=== PATIENT | female | born 1990 | race Caucasian/White ===

== ENCOUNTER 2021-05-21 16:41 | Outpatient (REF) | payer MEDICAID, SELFPAY ==
--- NOTE | ~2021-05-21 | MR_ITS ---
EXAMINATION: MR BRAIN WITHOUT AND WITH CONTRAST CLINICAL INFORMATION: Migraine without aura. COMPARISON: None available. TECHNIQUE: Multiplanar, multisequence imaging of the brain was performed before and after the intravenous administration of 6 mL of Gadavist. FINDINGS: There is no acute infarction, mass, hemorrhage, or extra-axial collection. No abnormal or unexpected intracranial enhancement is seen. The ventricles, sulci, and basilar cisterns are normal in size and configuration. The midline structures appear normal. The cerebellar tonsils are normally positioned. The flow voids of the major intracranial arteries appear intact. The bones and extracranial soft tissues are within normal limits. MR/MR head/brain wo/w con IMPRESSION: No mass lesion, acute infarction, or abnormal intracranial enhancement.
== END 2021-05-21 16:42 | disposition home or self-care (01) ==
LOC: HO.MRI 16:41
PROVIDERS: PCP Physician Assistant; Visit Provider Psychiatry & Neurology Neurology
DX: G43.009 Migraine without aura, not intractable, without status migrainosus (principal); R29.2 Abnormal reflex
CPT/HCPCS: 70553; A9585

== ENCOUNTER 2021-06-10 18:02 | Outpatient (REF) | payer MEDICAID, SELFPAY ==
--- NOTE | ~2021-06-10 | MR_ITS ---
EXAMINATION: MR CERVICAL SPINE WITHOUT AND WITH CONTRAST MR THORACIC SPINE WITHOUT AND WITH CONTRAST CLINICAL INFORMATION: Hyperreflexia and paresthesias. Dizziness and neck pain. COMPARISON: None TECHNIQUE: Multiplanar, multisequential imaging acquired without and with intravenous administration of 6 mL of Gadavist. FINDINGS: CERVICAL SPINE: There is a reversal of the normal cervical lordosis. No compression fractures are seen. Multilevel reduced intradiscal signal with mild endplate spurring and degenerative disc bulges noted. The paraspinal soft tissues appear normal. No pathologic enhancement visible. The vertebral artery flow-voids are maintained. The imaged lung apices are clear. The craniovertebral junction and visualized portions of the brain parenchyma are unremarkable. No cervical cord signal abnormality or syrinx is seen. C2-C3: Mild facet arthropathy. No central canal stenosis or disc pathology. Patent foramina. C3-C4: Very mild anterior subluxation and disc bulge without central canal stenosis or foraminal narrowing. Mild facet degeneration. C4-C5: Very small central disc protrusion and mild anterolisthesis without central canal stenosis or foraminal narrowing. Mild facet arthropathy. C5-C6: Shallow, broad based disc-osteophyte complex with a small right paracentral disc protrusion. No central canal stenosis. Endplate spurring with [id number] left foraminal encroachment. C6-C7: Broad-based posterior disc bulge and mild endplate spurring with slight impression upon the ventral thecal sac. Very mild narrowing of the central canal. Mild bilateral foraminal encroachment. C7-T1: No disc pathology, central canal stenosis, or foraminal narrowing. THORACIC SPINE: Mild rightward curvature of the midthoracic spine evident. The marrow signal is homogeneous. No compression fractures or subluxations are visible. There is a mild septated syrinx spanning from the T5 through the T8 levels in the midthoracic cord which measures up to 4.3 mm TV at the T7 level. The remaining imaged portions of the thoracic cord appear normal. The conus tip and cauda equina nerve roots appear normal. No pathologic intradural enhancement identified on postcontrast imaging. The paraspinal soft tissues are normal and imaged portions of the lungs are clear. T3-T4: Small central disc protrusion. T6-T7: Mild endplate spurring and shallow right subarticular zone disc protrusion. T8-T9: Mild disc bulge and shallow left paracentral to subarticular zone disc protrusion. T11-T12: Degenerative endplate spurring and mild disc bulge. The central canal and neural foramina are patent throughout the thoracic spine. The remaining thoracic discs are well hydrated and normal in appearance. MR/MR thoracic spine wo/w con IMPRESSION: Cervical spine: Mild multilevel cervical spondylosis and reversal of the normal lordotic curvature. No abnormal enhancement or cord signal abnormality. Small central disc protrusion and mild anterolisthesis at the C4-C5 level. Mild disc-osteophyte complex is at the C5-C6 and C6-C7 levels with [id number] left foraminal encroachment at C5-C6 and mild central canal stenosis and bilateral foraminal encroachment at the C6-C7 level. Thoracic spine: Mildly septated syrinx from the T5-T8 levels measuring up to 4.3 mm in transverse dimension at the T7 level. No abnormal enhancement. Mild rightward curvature of the thoracic spine with mild multilevel spondylitic changes. Shallow disc protrusions at the T3-T4, T6-T7, and T8-T9 levels. No central canal stenosis.
--- NOTE | ~2021-06-10 | MR_ITS ---
EXAMINATION: MR CERVICAL SPINE WITHOUT AND WITH CONTRAST MR THORACIC SPINE WITHOUT AND WITH CONTRAST CLINICAL INFORMATION: Hyperreflexia and paresthesias. Dizziness and neck pain. COMPARISON: None TECHNIQUE: Multiplanar, multisequential imaging acquired without and with intravenous administration of 6 mL of Gadavist. FINDINGS: CERVICAL SPINE: There is a reversal of the normal cervical lordosis. No compression fractures are seen. Multilevel reduced intradiscal signal with mild endplate spurring and degenerative disc bulges noted. The paraspinal soft tissues appear normal. No pathologic enhancement visible. The vertebral artery flow-voids are maintained. The imaged lung apices are clear. The craniovertebral junction and visualized portions of the brain parenchyma are unremarkable. No cervical cord signal abnormality or syrinx is seen. C2-C3: Mild facet arthropathy. No central canal stenosis or disc pathology. Patent foramina. C3-C4: Very mild anterior subluxation and disc bulge without central canal stenosis or foraminal narrowing. Mild facet degeneration. C4-C5: Very small central disc protrusion and mild anterolisthesis without central canal stenosis or foraminal narrowing. Mild facet arthropathy. C5-C6: Shallow, broad based disc-osteophyte complex with a small right paracentral disc protrusion. No central canal stenosis. Endplate spurring with [id number] left foraminal encroachment. C6-C7: Broad-based posterior disc bulge and mild endplate spurring with slight impression upon the ventral thecal sac. Very mild narrowing of the central canal. Mild bilateral foraminal encroachment. C7-T1: No disc pathology, central canal stenosis, or foraminal narrowing. THORACIC SPINE: Mild rightward curvature of the midthoracic spine evident. The marrow signal is homogeneous. No compression fractures or subluxations are visible. There is a mild septated syrinx spanning from the T5 through the T8 levels in the midthoracic cord which measures up to 4.3 mm TV at the T7 level. The remaining imaged portions of the thoracic cord appear normal. The conus tip and cauda equina nerve roots appear normal. No pathologic intradural enhancement identified on postcontrast imaging. The paraspinal soft tissues are normal and imaged portions of the lungs are clear. T3-T4: Small central disc protrusion. T6-T7: Mild endplate spurring and shallow right subarticular zone disc protrusion. T8-T9: Mild disc bulge and shallow left paracentral to subarticular zone disc protrusion. T11-T12: Degenerative endplate spurring and mild disc bulge. The central canal and neural foramina are patent throughout the thoracic spine. The remaining thoracic discs are well hydrated and normal in appearance. MR/MR cervical spine wo/w con IMPRESSION: Cervical spine: Mild multilevel cervical spondylosis and reversal of the normal lordotic curvature. No abnormal enhancement or cord signal abnormality. Small central disc protrusion and mild anterolisthesis at the C4-C5 level. Mild disc-osteophyte complex is at the C5-C6 and C6-C7 levels with [id number] left foraminal encroachment at C5-C6 and mild central canal stenosis and bilateral foraminal encroachment at the C6-C7 level. Thoracic spine: Mildly septated syrinx from the T5-T8 levels measuring up to 4.3 mm in transverse dimension at the T7 level. No abnormal enhancement. Mild rightward curvature of the thoracic spine with mild multilevel spondylitic changes. Shallow disc protrusions at the T3-T4, T6-T7, and T8-T9 levels. No central canal stenosis.
== END 2021-06-10 18:03 | disposition home or self-care (01) ==
LOC: HO.MRI 18:02
PROVIDERS: Visit Provider Psychiatry & Neurology Neurology
DX: R29.2 Abnormal reflex (principal); G82.20 Paraplegia, unspecified
CPT/HCPCS: 72156; 72157; A9585

== ENCOUNTER 2023-08-21 13:01 | Outpatient (AMB) | payer MEDICAID, SELFPAY ==
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
== END 2023-08-21 15:20 | disposition home or self-care (01) ==
PROVIDERS: PCP Physician Assistant; Visit Provider Physician Assistant
DX: M54.2 Cervicalgia (principal)
CPT/HCPCS: 99205

== ENCOUNTER 2023-08-21 13:01 | Outpatient (REF) | payer MEDICAID, SELFPAY ==
--- NOTE | ~2023-08-21 | XR_ITS ---
EXAMINATION: XR CERVICAL SPINE CLINICAL INFORMATION: M54.2 - Cervicalgia COMPARISON: MR cervical spine of 06/10/2021. TECHNIQUE: 4 views of the cervical spine, inclusive of flexion and extension views, were obtained. FINDINGS: Reversal of the normal cervical lordosis. Multilevel cervical spondylosis. Mild loss of disc space height with hypertrophic changes C5-C6. Minimal anterior subluxation of C2 on C3, C3 on C4, and C4 on C5, and C5 on C6 with flexion. Minimal posterior subluxation of C2 on C3, C3 on C4, and C4 on C5 with extension. Facet arthritis in the lower cervical spine. XR/XR cervical spine 4V IMPRESSION: Mild multilevel cervical spondylosis. Electronically signed by: Yamilka Liao MD 08/01/2024 06:50 AM CYRUS ADAM
== END 2023-08-21 13:02 | disposition home or self-care (01) ==
LOC: HO.HOSX 13:01
PROVIDERS: PCP Physician Assistant; Visit Provider Physician Assistant
DX: M54.2 Cervicalgia (principal)
CPT/HCPCS: 72050; 99202

== ENCOUNTER 2025-03-20 14:03 | Outpatient (AMB) | payer MEDICAID, SELFPAY ==
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
[2025-03-20 14:09] VITALS: BP 122/67; PULSE 92; RESP 16; O2SAT 100; BMI 25.0
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
== END 2025-03-20 14:50 | disposition home or self-care (01) ==
LOC: HO.PMC 14:03
PROVIDERS: PCP Family Medicine; Visit Provider Nurse Practitioner Family
DX: Q79.60 Ehlers-Danlos syndrome, unspecified (principal); M47.812 Spondylosis without myelopathy or radiculopathy, cervical region; G44.86 Cervicogenic headache; M62.838 Other muscle spasm; M54.9 Dorsalgia, unspecified; M43.8X2 Other specified deforming dorsopathies, cervical region
CPT/HCPCS: 99204

== ENCOUNTER 2025-03-20 14:03 | Outpatient (REF) | payer MEDICAID, SELFPAY ==
--- NOTE | ~2025-03-20 | XR_ITS ---
EXAMINATION: XR CERVICAL SPINE CLINICAL INFORMATION: M47.812 - Spondylosis without myelopathy or radiculopathy, cervical region COMPARISON: August 21, 2023 TECHNIQUE: AP oblique lateral views and atlantoodontoid views. FINDINGS: Craniocervical junction is intact. S-shaped curvature of the cervical spine with a reverse curvature apex at C4-5. Marginal osteophyte formation at C5-6 and to a lesser extent C6-7. Decreased intervertebral disc height C5-6. No gross neuroforamina stenosis. No lytic or blastic lesions. Upper airway is patent. XR/XR cervical spine 4V IMPRESSION: Multilevel cervical spondylosis with a [place] deformity apex at C5-6. Electronically signed by: Nas Flowers MD 03/20/2025 03:26 PM EDT
--- NOTE | ~2025-03-20 | XR_ITS ---
EXAMINATION: XR THORACIC SPINE CLINICAL INFORMATION: M54.9 - Dorsalgia, unspecified COMPARISON: Correlated to MRI dated June 10, 2021. TECHNIQUE: AP, lateral and swimmer's views FINDINGS: No acute cortical disruption or malalignment. No lytic or blastic lesions. Multilevel small marginal osteophyte formation and endplate sclerosis involving mostly the lower thoracic and upper lumbar spine. S-shaped curvature of the thoracolumbar spine. XR/XR thoracic spine 3V IMPRESSION: Multilevel cervical thoracolumbar spondylosis. Electronically signed by: Nas Flowers MD 03/20/2025 03:28 PM EDT
== END 2025-03-20 14:04 | disposition home or self-care (01) ==
LOC: HO.XRAY 14:03
PROVIDERS: PCP Family Medicine; Visit Provider Nurse Practitioner Family
DX: M47.812 Spondylosis without myelopathy or radiculopathy, cervical region (principal); Q79.60 Ehlers-Danlos syndrome, unspecified; G44.86 Cervicogenic headache; M62.830 Muscle spasm of back; M54.6 Pain in thoracic spine; M54.2 Cervicalgia; R42 Dizziness and giddiness; M43.8X2 Other specified deforming dorsopathies, cervical region; R26.89 Other abnormalities of gait and mobility; Z79.1 Long term (current) use of non-steroidal anti-inflammatories (NSAID); Z79.899 Other long term (current) drug therapy
CPT/HCPCS: 72050; 72072; 99202

== ENCOUNTER → 2025-03-20 15:01 | Outpatient (BNV) | payer MEDICAID, SELFPAY | PROVIDERS: PCP Family Medicine; Visit Provider Radiology Diagnostic Radiology | DX: M47.892 Other spondylosis, cervical region (principal); M47.894 Other spondylosis, thoracic region | CPT/HCPCS: 72050; 72072 ==

== ENCOUNTER 2025-03-31 18:54 | Outpatient (REF) | payer MEDICAID, SELFPAY ==
--- NOTE | ~2025-03-31 | MR_ITS ---
CLINICAL HISTORY: M47.812 - Spondylosis without myelopathy or radiculopathy, cervical region MR cervical spine without gadolinium Comparison: CR/SR - XR THORACIC SPINE 3 VIEWS - 03/20/25 15:21 EDT CR/SR - XR CERVICAL SPINE 4-5 VIEWS - 03/20/25 15:13 EDT Findings: Multilevel cervical spondylolisthesis with disc space narrowing from C2-3 to C6-7, most pronounced at C4-5, C5-6, and C6-7. No evidence of compression fractures or abnormal marrow signal. There is multilevel canal stenosis and bilateral foraminal stenosis, most severe at C4-5 and C5-6. No spinal cord edema. Visualized intracranial contents are unremarkable. No cervical fluid collections or masses. Visualized lung apices are unremarkable. IMPRESSION: Multilevel cervical spondylolisthesis with disc space narrowing and multilevel canal stenosis and bilateral foraminal stenosis, most severe at C4-5 and C5-6. This document has been electronically signed by: Bucky Hwang MD on 03/31/2025 21:06:40
== END 2025-03-31 18:55 | disposition home or self-care (01) ==
LOC: HO.MRI 18:54
PROVIDERS: PCP Family Medicine; Visit Provider Nurse Practitioner Family
DX: M47.812 Spondylosis without myelopathy or radiculopathy, cervical region (principal); G44.86 Cervicogenic headache; M43.8X2 Other specified deforming dorsopathies, cervical region; Q79.60 Ehlers-Danlos syndrome, unspecified
CPT/HCPCS: 72141

== ENCOUNTER → 2025-03-31 18:54 | Outpatient (BNV) | payer MEDICAID, SELFPAY | PROVIDERS: PCP Family Medicine; Visit Provider Student in an Organized Health Care Education/Training Program | DX: M43.12 Spondylolisthesis, cervical region (principal) | CPT/HCPCS: 72141 ==

== ENCOUNTER 2025-05-01 09:46 | Outpatient (AMB) | payer MEDICAID, SELFPAY ==
--- NOTE | 2025-05-01 09:50 | HO.SPINEOV ---
Vital Signs 05/01/25 09:54 Height 5 ft 5 in Weight 150 lb BMI 25.0 Intake Visit Reasons: Spinal stenosis Intake Note: Ms. Tovar is here today c/o neck pain that ratiates to the arms all the way down to the legs. 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 Please refer to last years note for her original reason for referral. She comes in today to follow-up. She continues to have severe posterior neck pain with intermittent tingling down her arms and headaches associated with all this. Last time she was here we talked about the fact that she had a kyphotic deformity of her neck and this could cause neck pain, however treating it with surgical correction could also give her pain if we needed to do a multilevel fusion, and at the time I think she just was not in bad enough pain to justify it. She tells me that the last year and a half has continued to be terrible in terms of posterior neck pain and only getting worse. Although she has good days and bad days, there are more bad days than good. She continues to take Suboxone, meloxicam, gabapentin and cyclobenzaprine. She is due to undergo some shots up and the pain management office and the patient tells me that she was sent down here specifically to be evaluated anatomically to see if she would be a candidate for some kind of interventional pain procedure. From the records it sounds like maybe they are talking about doing a Sprint or spinal cord stimulator type procedure but there also talks of C3, C4 and C5 median branch blocks. On exam, she is able to stand walk on her own down the hallway, tandem gait walking is with excellent stability, strength and reflexes all normal, extraocular movements and cranial nerve testing is all normal. Again her MRI done here at [facility] shows kyphotic curvature of the cervical spine with some degenerative disc disease at C5-6, there are varying degrees of foraminal stenosis as well. Her x-rays show that she has full if not accentuated range of motion with flexion and extension x-rays. I will review her imaging with Dr. Mahan again see if we can come up with some kind of tentative surgical plan if these other interventional procedures do not work. In the meantime, I will try to get in touch with Nathalie to see exactly what the patient was talking about regarding needing to be evaluated anatomically for 1 of their procedures. Total amount of time spent in this visit was 20 minutes in discussion of symptoms, cervical imaging results and subsequent plan of care Deshawn Mahan MD,PhD [facility] Coding Level of Care Code Est Pt Level 3 (32099) Diagnoses Neck pain M54.2 EDS (Jalil-Danlos syndrome) Q79.60
[2025-05-01 09:54] VITALS: BMI 25.0
== END 2025-05-01 10:36 | disposition home or self-care (01) ==
LOC: HO.HNS 09:46
PROVIDERS: PCP Family Medicine; Referring Provider Nurse Practitioner Family; Visit Provider Physician Assistant
DX: M54.2 Cervicalgia (principal); Q79.60 Ehlers-Danlos syndrome, unspecified
CPT/HCPCS: 99213

== ENCOUNTER → 2025-05-01 09:46 | Outpatient (BNVA) | payer MEDICAID, SELFPAY | PROVIDERS: PCP Family Medicine; Referring Provider Nurse Practitioner Family; Visit Provider Physician Assistant | DX: M54.2 Cervicalgia (principal); Q79.60 Ehlers-Danlos syndrome, unspecified | CPT/HCPCS: 99212 ==

== ENCOUNTER 2025-06-02 08:32 | Outpatient (AMB) | payer OTHER, SELFPAY ==
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
[2025-06-02 08:39] VITALS: BP 117/76; PULSE 90; O2SAT 100
== END 2025-06-02 08:52 | disposition home or self-care (01) ==
LOC: HO.PMC 08:33
PROVIDERS: PCP Family Medicine; Visit Provider Nurse Practitioner Family
DX: Q79.60 Ehlers-Danlos syndrome, unspecified (principal); M47.812 Spondylosis without myelopathy or radiculopathy, cervical region; G44.86 Cervicogenic headache; M62.838 Other muscle spasm; M54.9 Dorsalgia, unspecified; M43.8X2 Other specified deforming dorsopathies, cervical region; M48.02 Spinal stenosis, cervical region; M43.12 Spondylolisthesis, cervical region
CPT/HCPCS: 99213

== ENCOUNTER → 2025-06-02 08:32 | Outpatient (BNVA) | payer OTHER, SELFPAY | PROVIDERS: PCP Family Medicine; Visit Provider Nurse Practitioner Family | DX: Q79.60 Ehlers-Danlos syndrome, unspecified (principal); M47.812 Spondylosis without myelopathy or radiculopathy, cervical region; G44.86 Cervicogenic headache; M62.838 Other muscle spasm; M43.8X2 Other specified deforming dorsopathies, cervical region; M48.02 Spinal stenosis, cervical region; M43.12 Spondylolisthesis, cervical region; M54.9 Dorsalgia, unspecified | CPT/HCPCS: 99212 ==

== ENCOUNTER 2025-06-29 06:20 | Outpatient (REF) | payer OTHER, SELFPAY ==
--- NOTE | ~2025-06-29 | FL_ITS ---
EXAMINATION: FL GUIDANCE ONLY HISTORY: M47.812 - Spondylosis without myelopathy or radiculopathy, cervical region COMPARISON: None available. TECHNIQUE: Fluoroscopy time: 15 seconds. Cumulative Dose: 1.50 mGy. DAP: 206.00 mGycm2 Images: 3. FINDINGS: Fluoroscopic spot films of the cervical spine demonstrate needles and contrast material in place on the left. FL/FL guidance in treatment room IMPRESSION: Fluoroscopy during procedure. Please see procedure report for additional information. Electronically signed by: Juan Daniel Cristina MD 06/29/2025 03:04 PM [facility]
== END 2025-06-29 06:21 | disposition home or self-care (01) ==
LOC: CF 06:20
PROVIDERS: Visit Provider Internal Medicine
DX: M47.812 Spondylosis without myelopathy or radiculopathy, cervical region (principal)
CPT/HCPCS: 64490; 64491; J2795; Q9967

== ENCOUNTER 2025-06-29 11:25 | Outpatient (AMB) | payer OTHER, SELFPAY ==
[2025-06-29 11:33] VITALS: BP 98/68; PULSE 101; RESP 16; O2SAT 100
--- NOTE | 2025-06-29 11:33 | MHC.OFFVIS ---
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: No Allergies codeine (CODEINE) Allergy (Severe, Verified 06/29/25 11:33) ANAYPHYLAXIS Medication List - Last Reconciled 06/29/25 by Ruth Richard LPN acetazolamide 250 mg PO BID amitriptyline 10 mg PO BEDTIME buprenorphine-naloxone 2-0.5 mg (Suboxone) 1 film buccal DAILY chlorzoxazone 500 mg PO TID clobetasol 0.05% 1 appl topical BEDTIME clonazepam (Klonopin) 0.5 mg PO BID cyclobenzaprine 5 mg PO TID PRN eletriptan take 1 tab at onset of headache; if no relief, may repeat 1 tab after at least 2 hrs; max = 2 tabs/24 hrs PO escitalopram oxalate 20 mg PO DAILY gabapentin 100 mg PO TID lidocaine 5% 1 patch topical DAILY meloxicam 15 mg PO DAILY norethindrone ac-eth estradiol 1-20 mg-mcg 1 tab PO DAILY onabotulinumtoxinA (Botox) IM ondansetron 4 mg PO Q8H propranolol 10 mg PO BID HPI HPI Right diagnostic C3-C4-C5 MBB: Details: Patient presents for scheduled procedure. Denies any recent cough, cold, infection, fever or other significant changes in medical history since last office visit. [facility] Medical History Opioid dependence in remission Premenstrual tension syndrome Anxiety disorder Recurrent major depressive episodes, mild Panic disorder Neck muscle strain Muscle spasm Chronic pain syndrome PTSD (post-traumatic stress disorder) EDS (Jalil-Danlos syndrome) Physical Exam Vital Signs: Last Vital Signs Pulse 89 06/29/25 12:18 Resp 16 06/29/25 12:18 BP 90/60 06/29/25 12:18 Pulse Ox 99 06/29/25 12:18 Oxygen Delivery Method Room Air 06/29/25 12:18 Office Procedures Cervical/Thoracic Facet Inj Details: Diagnostic Cervical Medial Branch Block, Right C3, C4, C5 medial branches After obtaining written consent, pre-procedure blood pressure and pulse were recorded and are in the nursing record for review. The patient was placed in a lateral position. The respective cervical area was prepped with chloraprep and draped in sterile fashion. The skin over the target medial branch nerves was anesthetized with 0.5% lidocaine. A 25 gauge 1.5 inch needle was inserted into the target medial branch nerve under fluoroscopic guidance. No paresthesias were elicited with needle placement and aspiration was negative for blood and CSF. Next, 0.2cc of omnipaque 180 was injected to verify positioning. Next 0.5 ml 0.5% ropivicaine was injected (0.5 cc total per level). The identical procedure was performed at the remaining levels. The skin was cleansed and a sterile bandage was applied. Following the procedure the patient's vital signs were stable. The patient tolerated the procedure well and no complications were encountered. Following the procedure the patient's vital signs were stable. The patient was discharged home in good condition with post-procedural instructions. Time Out: Immediately prior to the procedure, the following was verbally confirmed that there is a signed consent form and that the correct patient, planned procedure, site and side are consistent with documentation and that necessary equipment and/or blood products are available prior to the start of the case. Complications: none EBL: <5 cc 46619 - with Fluoroscopy 21976 - second level, with Fluoroscopy Procedure code (CPT) selection complete Assessment & Plan Assessment & Plan (1) Cervical spondylosis: Code(s): M47.812 - Spondylosis without myelopathy or radiculopathy, cervical region Category: Medical Plan Patient is status post Right C3, C4, C5 diagnostic medial branch blocks. Patient tolerated procedure well and was discharged home in stable condition with discharge instructions. All questions were answered. We will follow-up via telephone or in clinic to assess response to therapy. A follow-up appointment was made during today's visit. Orders: Orders FL guidance in treatment room Today Karla Godfrey APRN, DERRICK [employer]AT CAPTAIN M47.812 - Spondylosis without myelopathy or radiculopathy, cervical region AMB Facet Injection-Cervical/Thoracic Today Zach Hillman MD M47.812 - Spondylosis without myelopathy or radiculopathy, cervical region Coding Level of Care Code Procedure Only Diagnoses Cervical spondylosis M47.812 CPT Codes Facet Injection Cervical/Thoracic - CPT: 07626 - with Fluoroscopy ([id number]) Facet Injection Cervical/Thoracic - CPT: 58922 - second level, with Fluoroscopy ([id number])
[2025-06-29 12:18] VITALS: BP 90/60; PULSE 89; RESP 16; O2SAT 99
== END 2025-06-29 12:38 | disposition home or self-care (01) ==
LOC: HO.PMCPRC 11:25
PROVIDERS: PCP Family Medicine; Visit Provider Internal Medicine
DX: M47.812 Spondylosis without myelopathy or radiculopathy, cervical region (principal)
CPT/HCPCS: 64490; 64491

== ENCOUNTER 2025-07-13 06:33 | Outpatient (REF) | payer OTHER, SELFPAY ==
--- NOTE | ~2025-07-13 | FL_ITS ---
EXAMINATION: XR FLUOROSCOPY WITH IMAGES CLINICAL INFORMATION: Spondylosis without myelopathy COMPARISON: 06/29/2025 TECHNIQUE: Fluoroscopy time: 13 seconds DAP: 327 mGycm2 Images: 2 FINDINGS: Fluoroscopy provided during procedure. Fluoroscopic spot images demonstrate needles and contrast material in place on the left. FL/FL guidance in treatment room IMPRESSION: Fluoroscopy during procedure. Please see procedure report for details. Electronically signed by: Aneesh Parra MD 07/14/2025 01:47 PM [facility]
== END 2025-07-13 06:34 | disposition home or self-care (01) ==
LOC: CF 06:33
PROVIDERS: Visit Provider Internal Medicine
DX: M47.812 Spondylosis without myelopathy or radiculopathy, cervical region (principal)
CPT/HCPCS: 64490; 64491; J2003; J2795; Q9967

== ENCOUNTER 2025-07-13 11:05 | Outpatient (AMB) | payer OTHER, SELFPAY ==
[2025-07-13 11:20] VITALS: BP 111/67; PULSE 104; RESP 16; O2SAT 98
--- NOTE | 2025-07-13 11:20 | MHC.OFFVIS ---
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 Required: No Allergies codeine (CODEINE) Allergy (Severe, Verified 07/17/25 11:08) ANAYPHYLAXIS Medication List - Last Reconciled 07/13/25 by Ruth Richard LPN acetazolamide 250 mg PO BID amitriptyline 10 mg PO BEDTIME buprenorphine-naloxone 2-0.5 mg (Suboxone) 1 film buccal DAILY chlorzoxazone 500 mg PO TID clobetasol 0.05% 1 appl topical BEDTIME clonazepam (Klonopin) 0.5 mg PO BID cyclobenzaprine 5 mg PO TID PRN eletriptan take 1 tab at onset of headache; if no relief, may repeat 1 tab after at least 2 hrs; max = 2 tabs/24 hrs PO escitalopram oxalate 20 mg PO DAILY gabapentin 100 mg PO TID lidocaine 5% 1 patch topical DAILY meloxicam 15 mg PO DAILY norethindrone ac-eth estradiol 1-20 mg-mcg 1 tab PO DAILY onabotulinumtoxinA (Botox) IM ondansetron 4 mg PO Q8H propranolol 10 mg PO BID HPI HPI Left diagnostic C3-C4-C5 MBB: Details: Patient presents for scheduled procedure. Denies any recent cough, cold, infection, fever or other significant changes in medical history since last office visit. [facility] Medical History Opioid dependence in remission Premenstrual tension syndrome Anxiety disorder Recurrent major depressive episodes, mild Panic disorder Neck muscle strain Muscle spasm Chronic pain syndrome PTSD (post-traumatic stress disorder) EDS (Jalil-Danlos syndrome) Physical Exam Vital Signs: Last Vital Signs Pulse 107 H 07/13/25 11:56 Resp 16 07/13/25 11:56 BP 96/68 07/13/25 11:56 Pulse Ox 98 07/13/25 11:56 Oxygen Delivery Method Room Air 07/13/25 11:56 Office Procedures Procedure Details: Diagnostic Cervical Medial Branch Block, Left C3, C4, C5 medial branches After obtaining written consent, pre-procedure blood pressure and pulse were recorded and are in the nursing record for review. The patient was placed in a lateral position. The respective cervical area was prepped with chloraprep and draped in sterile fashion. The skin over the target medial branch nerves was anesthetized with 0.5% lidocaine. A 25 gauge 1.5 inch needle was inserted into the target medial branch nerve under fluoroscopic guidance. No paresthesias were elicited with needle placement and aspiration was negative for blood and CSF. Next, 0.2cc of omnipaque 180 was injected to verify positioning. Next 0.5 ml 0.5% ropivicaine was injected (0.5 cc total per level). The identical procedure was performed at the remaining levels. The skin was cleansed and a sterile bandage was applied. Following the procedure the patient's vital signs were stable. The patient tolerated the procedure well and no complications were encountered. Following the procedure the patient's vital signs were stable. The patient was discharged home in good condition with post-procedural instructions. Time Out: Immediately prior to the procedure, the following was verbally confirmed that there is a signed consent form and that the correct patient, planned procedure, site and side are consistent with documentation and that necessary equipment and/or blood products are available prior to the start of the case. Complications: none EBL: <5 cc 53968 Cervical Facet Inj SINGLE Level- use with FL Gd order: 81230 - One Side 81679 Cervical Facet Inj SECOND Level- use with FL Gd order: 55854 - One Side Procedure code (CPT) selection complete Assessment & Plan Assessment & Plan (1) Cervical spondylosis: Code(s): M47.812 - Spondylosis without myelopathy or radiculopathy, cervical region Category: Medical Plan Patient is status post left diagnostic C3, C4, C5 medial branch blocks. Patient tolerated procedure well and was discharged home in stable condition with discharge instructions. All questions were answered. We will follow-up via telephone or in clinic to assess response to therapy. A follow-up appointment was made during today's visit. Orders: Orders FL guidance in treatment room 07/13/25 M47.812 - Spondylosis without myelopathy or radiculopathy, cervical region Coding Level of Care Code Procedure Only Diagnoses Cervical spondylosis M47.812 CPT Codes AMB Cervical Facet Injections - 52392 Cervical Facet Inj CPT: 94689 - One Side ([id number]) AMB Cervical Facet Injections - 86189 Cervical Facet Inj CPT: 22641 - One Side ([id number])
[2025-07-13 11:56] VITALS: BP 96/68; PULSE 107; RESP 16; O2SAT 98
== END 2025-07-13 11:58 | disposition home or self-care (01) ==
LOC: HO.PMCPRC 11:05
PROVIDERS: PCP Family Medicine; Visit Provider Internal Medicine
DX: M47.812 Spondylosis without myelopathy or radiculopathy, cervical region (principal)
CPT/HCPCS: 64490; 64491

== ENCOUNTER 2025-07-17 11:01 | Outpatient (AMB) | payer MEDICARE, MEDICAID, SELFPAY ==
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
[2025-07-17 11:07] VITALS: BP 109/64; PULSE 113; O2SAT 100; BMI 25.0
== END 2025-07-17 11:23 | disposition home or self-care (01) ==
LOC: HO.PMC 11:01
PROVIDERS: PCP Family Medicine; Visit Provider Nurse Practitioner Family
DX: M47.812 Spondylosis without myelopathy or radiculopathy, cervical region (principal); G44.86 Cervicogenic headache; M54.2 Cervicalgia; G89.4 Chronic pain syndrome; M54.81 Occipital neuralgia
CPT/HCPCS: 99213; G2211

== ENCOUNTER → 2025-07-17 11:01 | Outpatient (BNVA) | payer MEDICARE, MEDICAID, SELFPAY | PROVIDERS: PCP Family Medicine; Visit Provider Nurse Practitioner Family | DX: M47.812 Spondylosis without myelopathy or radiculopathy, cervical region (principal); G89.4 Chronic pain syndrome; G44.86 Cervicogenic headache; M54.81 Occipital neuralgia | CPT/HCPCS: 99212 ==